=== PATIENT | female | born 1940 | race Caucasian/White ===

== ENCOUNTER → 2019-08-02 12:21 | Outpatient (CLI) | payer MEDICARE, SELFPAY ==
--- NOTE | 2019-08-02 12:26 | CT_ITS ---
STUDY: CT TEMPORAL BONES WITHOUT CONTRAST - ATTN: I.A.C. S REASON FOR EXAM: Female, 79 years old. BILAT HEARING LOSS RADIATION DOSAGE (If Supplied By Facility): CTDIvol = ( 67.58 ) mGy, DLP = ( 633.15 ) mGycm TECHNIQUE: The patient was scanned in a multi detector CT scanner. Transaxial imaging was performed without the administration of intravenous contrast material. Sagittal and coronal images were reconstructed. Individualized dose optimization techniques were used for this CT. COMPARISON: None. FINDINGS: RIGHT TEMPORAL BONE Normal right internal auditory canal. Normal visualized ossicles and tympanic cavity. Normal right cochlea and semicircular canals. Normal vestibular aqueduct. Normal right petrous carotid artery. Normal right jugular fossa. Normal right mastoid air cells. Normal right petrous apex. LEFT TEMPORAL BONE Normal left internal auditory canal. Normal visualized ossicles and tympanic cavity. Normal left cochlea and semicircular canals. Normal vestibular aqueduct. Normal left petrous carotid artery. Normal right jugular fossa. Normal left mastoid air cells. Normal left petrous apex. CT/Orb Sella Post Fossa Ear w/o IMPRESSION: Normal unenhanced CT examination of the bilateral temporal bones (I.A.C.''s). Electronically Signed: Cam Brewer, at 13:30 EDT , Service support ,
== END ==
PROVIDERS: PCP Internal Medicine; Referring Provider Otolaryngology; Visit Provider Otolaryngology
DX: H90.11 Conductive hearing loss, unilateral, right ear, with unrestricted hearing on the contralateral side (principal)
CPT/HCPCS: 70480

== ENCOUNTER 2021-02-23 10:01 | Emergency (ER) | payer MEDICARE, SELFPAY ==
[2021-02-23 10:02] VITALS: BP 214/73; PULSE 52; RESP 16; TEMP 36.7; O2SAT 100; BMI 23.1
--- NOTE | 2021-02-23 10:12 | RAD_ITS ---
STUDY: X-RAY CHEST REASON FOR EXAM: Female, 80 years old. Chest pain TECHNIQUE: Single AP portable view of the chest. COMPARISON: None. FINDINGS: EKG leads overlie the chest The lungs are clear and expanded. There is no demonstrated pleural abnormality. Normal size heart. Normal mediastinum and carin. Normal visualized pulmonary arteries. Normal visualized aortic arch and descending thoracic aorta. Normal visualized thoracic spine. Previous right rotator cuff repair There is no demonstrated abnormality of the visualized soft tissue structures of the upper abdomen. RAD/Chest 1 View (Portable) IMPRESSION: Normal x-ray examination of the chest. Electronically Signed: Rob Vance MD at 10:46 EST , Service support ,
--- NOTE | 2021-02-23 10:12 | EKG12_ITS ---
Test Reason : HYPERTENSION Blood Pressure : / mmHG Vent. Rate : 051 BPM Atrial Rate : 051 BPM P-R Int : 176 ms QRS Dur : 080 ms QT Int : 448 ms P-R-T Axes : 070 036 027 degrees QTc Int : 412 ms Sinus bradycardia with sinus arrhythmia Otherwise normal ECG Confirmed by SAL LOPEZ, DAISHA ([id number]), editorial clerk CURTIS HAYS ([id number]) on 02/24/2021 1:53:58 PM Referred By: NOAH Confirmed By:DAISHA HUANG MD
[2021-02-23 10:47] LABS: Anion Gap 6 (5-15); BUN 17 mg/dL (7-18); BUN/Creat Ratio 15.9 RATIO (10-20); Calcium,Total 9.1 mg/dL (8.5-10.1); Chloride 102 mmol/L (98-107); Creatinine, Serum 1.07 mg/dL (0.55-1.02); EST Glomerular Filtration Rate 52 mL/min (>60); Est Glom Filt Rate - Afr Amer 63 mL/min (>60); Estimated Creatinine Clearance 42.36 ml/min; Glucose 122 mg/dL (74-106); Potassium 3.3 mmol/L (3.5-5.1); Sodium Level 138 mmol/L (136-145)
--- NOTE | 2021-02-23 10:53 | EX.ED.DYSGE1 ---
HPI History of Present Illness Chief Complaint: Hypertension Informant: patient Onset/Context/Timing Onset: Hours Context: Sudden Onset Timing: Continuous Quality: Fullness Location: Head Current Severity: Mild Maximum Severity: Mild Worsened by: Nothing Relieved by: Nothing Associated Symptoms Associated Symptoms: None Narrative Narrative: Patient is an elderly woman with history of hypertension and type 2 diabetes who presents because of elevated blood pressure. She states she was getting ready for uatsdin. When she checked her blood pressure it was 217. She went to the [place] fire department and informed her that her blood pressure was 270/180. She declined transport because they would not take her to [facility]. She denies double vision, blurred vision, loss of vision. She denies problems with light perception. She denies ringing or ears or decreased hearing. She denies trouble with speech or swallowing. She does report intermittent chest pain over past couple of days. She denies back pain. She denies paresthesia, anesthesia medics. She denies abdominal pain, nausea, vomiting or diarrhea. She denies dysuria, frequency, urgency or hematuria. She denies problems with balance. Prior similar symptoms: Yes Recent Illness/Hospitalization: [facility] Medical History Colon cancer Diabetes Goiter Heart attack HTN (hypertension) Hypothyroid Home Medications amlodipine 5 mg PO DAILY 02/23/21 [History Last Taken Unknown] aspirin [Aspir-81] 81 mg PO DAILY 02/23/21 [History Last Taken Unknown] hydrochlorothiazide 12.5 mg PO DAILY 02/23/21 [History Last Taken Unknown] levothyroxine [Synthroid] 125 mcg PO DAILY 02/23/21 [History Last Taken Unknown] lisinopril 10 mg PO DAILY #30 tab 02/23/21 [Rx Last Taken Unknown] metformin 500 mg PO DAILY 02/23/21 [History Last Taken Unknown] metoprolol succinate 100 mg PO DAILY 02/23/21 [History Last Taken Unknown] omeprazole 40 mg PO DAILY 02/23/21 [History Last Taken Unknown] simvastatin 20 mg PO DAILY 02/23/21 [History Last Taken Unknown] Allergy/AdvReac Type Severity Reaction Status Date / Time morphine AdvReac Other Verified 02/23/21 10:04 Surgical History H/O heart artery stent Social History (Updated 02/23/21 @ 10:[address] Stuart Trujillo MD) household members: spouse Smoking Status: Former smoker alcohol intake: current alcohol intake frequency: holidays/special occasions only substance use type: does not use ROS ROS ED Constitutional Constitutional ED: Denies chills, fever(s), subjective, sweats or weight loss Eyes Eyes: Reports blurry vision; Denies change in vision or diplopia ENT ENT ED: Denies ear pain, rhinorrhea or sore throat Cardiovascular Cardiovascular: Reports chest pain and other Details: Chest pain is left side. It is intermittent. ; Denies orthopnea, palpitations, paroxysmal nocturnal dyspnea or racing heartbeat Respiratory/Chest Respiratory/Chest: Denies cough, dyspnea, dyspnea on exertion, orthopnea, paroxysmal nocturnal dyspnea or sputum Gastrointestinal Gastrointestinal: Denies abdominal pain, diarrhea, nausea or vomiting Genitourinary Genitourinary ED: Denies dysuria, hematuria or urinary frequency Musculoskeletal Musculoskeletal: Denies arthralgias, back pain, myalgias or neck pain Integumentary Denies rash Neurologic Neurologic: Reports headache(s); Denies paresthesias or weakness Endocrine Endocrinology: Denies polydipsia, polyphagia or polyuria EXAM Physical Exam Const Vital Signs: 02/23/21 10:02 02/23/21 10:20 Temperature 98.0 F Temperature Source Temporal Pulse Rate 52 L Respiratory Rate 16 Respiratory Effort Normal Non-Labored Respiratory Pattern Normal Blood Pressure 214/73 H Blood Pressure Mean 120 Pulse Ox 100 Oxygen Delivery Method Room Air Positive well nourished and well developed General Appearance ED: well developed and NAD; Negative for pallor HEENT Reports TM's clear and moist mucous membranes Negative for trauma or tenderness Tympanic Membrane ED: Yes TM's clear Eyes PERRL and EOMs intact bilaterally Eyes Narrative: There is no APD. There is no nystagmus. There is no papilledema on funduscopic exam. General Eye ED: Negative for pale conjunctiva or scleral icterus Neck no lymphadenopathy, supple and no JVD Chest Wall palpation of chest normal Resp normal respiratory effort and clear to auscultation bilaterally Cardio regular rate, regular rhythm, S1 normal heart sound, S2 normal heart sound and no murmurs GI normal to inspection, nondistended, normoactive bowel sounds, non-tender and non-distended; Negative for hepatosplenomegaly Palpation: soft Back/Spine no CVA tenderness Cervical Spine: Negative for cervical spine tenderness Thoracic Spine / Upper Back: Negative for thoracic spinal tenderness or paraspinal muscle tenderness Extremity normal to inspection Neuro oriented x3, CN's II-XII intact bilaterally and no sensory deficits noted Neuro Narrative: Patient gait is not ataxic. She is kyphotic. There is no dysmetria. DTRs 1+ symmetric with no clonus or Babinski sign. Sensorium / Orientation: alert Motor Exam: strength 5/5 throughout Psych mental status grossly normal Skin no rashes or lesions noted and no wounds General Skin Exam: Negative for jaundice or pallor MDM MDM MDM Narrative Medical decision making narrative: With markedly elevated blood pressure and complaint of head discomfort will obtain baseline blood work to assess for endorgan injury. Without treatment her pressure has improved markedly with the most recent systolic pressure being 165. Lab Data Attestation: I reviewed the patient's lab results. Lab results narrative: There is no evidence of endorgan injury. Plan is to add LUISA inhibitor. No blood pressure check for 72 hours. Follow-up with In 1 to 2 weeks for blood pressure recheck. Patient was informed why her pressure was not lowered abruptly. She is asymptomatic and has a longstanding history of hypertension there is likelihood of harm if her blood pressure is corrected quickly. Labs: Laboratory Results - last 24 hr 02/23/21 10:25 Sodium 138 Potassium 3.3 L Chloride 102 Carbon Dioxide 30.0 Anion Gap 6 BUN 17 Creatinine 1.07 H Estim Creat Clear Calc 42.36 Est GFR (MDRD) Af Amer 63 Est GFR (MDRD) Non-Af 52 L BUN/Creatinine Ratio 15.9 Glucose 122 H Calcium 9.1 Radiography Chest X-Ray - ED: 1 View and Read by ED Physician (Cardiac silhouette is normal. Mediastinum is normal. There is no widening of the mediastinum or abnormality aortic arch. There is no abnormality of the lung parenchyma.) Diagnostic Testing: Clinical Impression(s) from Imaging Studies Chest X-Ray 02/23/21 10:12 IMPRESSION: Normal x-ray examination of the chest. Electronically Signed: Rob Vance MD at 10:46 EST , Service support , EKG Initial EKG: Attestation: I personally reviewed and interpreted this EKG as follows: Interpretation: Sinus Bradycardia (Ventricular rate is 51. There is sinus arrhythmia noted, which is a normal variant. IN interval is 176 ms. QRS durations 80 ms. QT interval is 448 ms. [place] is normal. Other than the bradycardia no abnormality was noted.) Discharge Plan Triage Chief Complaint: Hypertension ED Provider: Stuart Trujillo Dx/Rx/DC Orders Clinical Impression: Accelerated essential hypertension Instructions: ED Hypertension, Established Prescriptions: New lisinopril 10 mg tablet 10 mg PO DAILY Qty: 30 RF: 0 No Action metformin 500 mg tablet 500 mg PO DAILY RF: 0 metoprolol succinate 100 mg tablet extended release 24 hr 100 mg PO DAILY RF: 0 amlodipine 5 mg tablet 5 mg PO DAILY RF: 0 omeprazole 40 mg capsule,delayed release(DR/EC) 40 mg PO DAILY RF: 0 aspirin [Aspir-81] 81 mg Tablet,Delayed Release (Dr/Ec) 81 mg PO DAILY RF: 0 simvastatin 20 mg tablet 20 mg PO DAILY RF: 0 levothyroxine [Synthroid] 125 mcg tablet 125 mcg PO DAILY RF: 0 hydrochlorothiazide 12.5 mg capsule 12.5 mg PO DAILY RF: 0 Primary Care Provider: Mariya Zarate Referrals: Mariya Zarate MD [Primary Care Provider] - 1-2 Weeks (Asymptomatic hypertension. Patient was started on lisinopril. Will need blood pressure rechecked in 1 to 2 weeks. Work-up was negative for evidence of endorgan injury) Disposition Disposition: Home, Self Care
[2021-02-23 11:49] VITALS: BP 187/78; PULSE 43; RESP 18; O2SAT 98
--- NOTE | 2021-02-23 11:52 | ED.RN ---
Pt advised by physician to not check BP for 72 hours. Starting new med. Spoke with patient and educated on s/s stroke and importance of responding immediately. Discussed taking BP at home. Pt verbalized understanding.
[2021-02-23] MEDS: Lisinopril 10 MG Tablet PO (11:59)
[2021-02-23 12:04] VITALS: BP 172/67; PULSE 49; RESP 14; O2SAT 97
== END 2021-02-23 12:04 | disposition home or self-care (01) ==
PROVIDERS: Emergency Provider Emergency Medicine; PCP Internal Medicine
DX: I10 Essential (primary) hypertension (principal); I25.2 Old myocardial infarction; E03.9 Hypothyroidism, unspecified; E11.9 Type 2 diabetes mellitus without complications; Z79.82 Long term (current) use of aspirin; Z79.84 Long term (current) use of oral hypoglycemic drugs; Z79.899 Other long term (current) drug therapy; Z87.891 Personal history of nicotine dependence
CPT/HCPCS: 71045; 80048; 93005; 99285; A4216

== ENCOUNTER → 2021-08-07 | Outpatient (CLI) | payer MEDICARE, SELFPAY ==
--- NOTE | 2021-08-07 16:21 | MRI_ITS ---
STUDY: MR Spine Lumbar W/O Contrast 08/07/2021 6:14 PM REASON FOR EXAM: Female, 81 years old. Back pain pain TECHNIQUE: MR Spine Lumbar W/O Contrast Standardized fat and water weighted pulse sequences were obtained. COMPARISON: None FINDINGS: T12-L1: Normal endplates. Normal disc height, hydration and morphology. Normal bilateral facet joints. Normal central canal and bilateral lateral recesses. Normal bilateral intervertebral neural foramina. Normal lumbar lordosis. There is no substantial scoliosis. Normal conus medullaris that terminates at the L1. L1-2: Loss of intervertebral disc height. There is endplate spondylosis of the vertebral body. Normal central canal and intervertebral neuroforamina. There is bilateral facet arthropathy. L2-3: Loss of intervertebral disc height. There is endplate spondylosis of the vertebral body. Bilateral neural foraminal stenosis. Compression of exiting left L2 nerve roots. There is bilateral facet arthropathy. There is bilateral ligamentum flavum thickening. L3-4: Loss of intervertebral disc height. There is endplate spondylosis of the vertebral body. Bilateral neural foraminal stenosis. Compression of exiting bilateral L3 nerve roots. There is bilateral facet arthropathy. There is bilateral ligamentum flavum thickening. L4-5: Loss of intervertebral disc height. There is endplate spondylosis of the vertebral body. Bilateral neural foraminal stenosis. Compression of exiting bilateral L4 nerve roots. There is bilateral facet arthropathy. There is bilateral ligamentum flavum thickening. Central disc herniation. Narrowing of the left lateral recess. Mild spinal stenosis. L5-S1: Loss of intervertebral disc height. There is endplate spondylosis of the vertebral body. There is bilateral facet arthropathy. Normal central canal and intervertebral neuroforamina. Dextroscoliosis of the lumbar spine. Normal visualized paraspinous soft tissue structures. MRI/Spine Lumbar (Routine) IMPRESSION: Multilevel degenerative changes, as described above. L2-3: Bilateral neural foraminal stenosis. Compression of exiting left L2 nerve roots. L3-4: Bilateral neural foraminal stenosis. Compression of exiting bilateral L3 nerve roots. L4-5: Bilateral neural foraminal stenosis. Compression of exiting bilateral L4 nerve roots. Central disc herniation. Narrowing of the left lateral recess. Mild spinal stenosis. Electronically Signed: Reese Eric MD at 18:18 EDT Reading Location ID and State: [facility] / [place] , Service support ,
== END | disposition home or self-care (01) ==
LOC: MRI 16:04
PROVIDERS: PCP Internal Medicine; Visit Provider Orthopaedic Surgery
DX: M47.816 Spondylosis without myelopathy or radiculopathy, lumbar region (principal)
CPT/HCPCS: 72148